=== PATIENT | female | born 1940 | race Caucasian/White ===

== ENCOUNTER 2018-09-30 12:12 | Outpatient (CLI) | payer MEDICARE, OTHER ==
[~2018-09-30 12:12] MED LIST: Bupivacaine 0.5% 30 ML SDV ONE
[2018-09-30 13:24] VITALS: BP 170/88; PULSE 69
--- NOTE | 2018-09-30 13:38 | PN ---
DATE OF SERVICE: 09/30/2018 INDICATION: Ms. Mittal is a 77-year-old female patient, referred to the [facility] to us by Dr. Garner. She is here today for trigger points. Please see the orders for the patient's preprocedure diagnosis as well as ICD-10 code. The risks and benefits of the procedure were explained to the patient. She wished to proceed with trigger points. TECHNIQUE: I did find 21 noticeable lumbar and thoracic trigger points. I did inject each of these with 1 to 2 mL of 0.5% Sensorcaine with Depo-Medrol mixture. She tolerated procedure very nicely. Her vital signs remained stable throughout the procedure and nurse was with the entire procedure. I did inject more than 3 muscle groups. She was discharged from the [facility] per protocol. Bola Muñoz CRNA /[id number]
== END 2018-09-30 13:24 | disposition home or self-care (01) ==
LOC: JP.PAIN 12:12
PROVIDERS: ATTEND Internal Medicine
DX: M60.9 Myositis, unspecified (principal)
CPT/HCPCS: 20553; J3490

== ENCOUNTER 2020-06-01 06:06 | Day surgery (SDC) | payer MEDICARE, OTHER ==
[2020-06-01] MEDS ORDERED: Sodium Chloride 0.9% 10 ML Syringe FLUSH PRN (07:00)
[2020-06-01 07:57] VITALS: BP 142/78; PULSE 60
--- NOTE | 2020-06-01 08:51 | OR ---
DATE OF PROCEDURE: 06/01/2020 SURGEON: Nahomy Neri MD POSTOPERATIVE CARE: Postoperative care will be provided mainly at the [address] [place] [address] [facility] in conjunction with [facility]. PREOPERATIVE DIAGNOSIS: Cataract, right eye. POSTOPERATIVE DIAGNOSIS: Cataract, right eye. PROCEDURE: Phacoemulsification with intraocular lens placement, right eye. ANESTHESIA: Topical and intracameral. ESTIMATED BLOOD LOSS: Minimal. COMPLICATIONS: None. PATHOLOGY SPECIMENS: None. SURGICAL FINDINGS: None. INDICATION FOR PROCEDURE: The patient is a 79-year-old female with history of a visually significant cataract in the right eye, which interfered with activities of daily living. This consisted of a nuclear sclerosis cataract. Following careful discussion of the risks, benefits and alternatives to cataract extraction with intraocular lens placement including blindness and , the patient elected to proceed, and informed, written consent was obtained prior to the procedure. DESCRIPTION OF THE PROCEDURE: The patient was previously identified, and a jannet placed above the right eye. All sources, including the patient, indicated that the right eye was the correct eye. The patient was subsequently taken to the operating room where standard monitors were applied. The patient was then prepped and draped in the usual sterile fashion for ophthalmic surgery. Attention was first directed at the 12 o'clock position where a paracentesis port was fashioned. Shugar solution followed by Viscoat was instilled into the eye. Attention was then directed to the 8:30 position where a triplanar incision was made in a near-clear manner using a keratome. A continuous capsulorrhexis was then made using a combination of the cystotome and Utrata forceps. Hydrodissection was achieved using a balanced salt solution, and the lens rotated nicely. Phacoemulsification was then done using a modified [id number]-[id number] technique without complication. Phaco time was 5.39 CDE. The remaining cortex was removed using the irrigation/aspiration handpiece. Provisc was then instilled into the eye. A Technis lens, model PCB00, at 17.0 diopters was then placed in the capsular bag using an [place] injector. The remaining viscoelastic was removed using the irrigation/aspiration forceps. All wounds were then checked and found to be watertight. The lid speculum and drapes were removed. Maxitrol ointment was placed in the patient's right eye, and the eye was shielded. The patient tolerated the procedure well. The patient was instructed to follow up tomorrow. All needle and sponge counts were correct at the end of the procedure. Nahomy Neri MD /[id number]
== END 2020-06-01 08:04 | disposition home or self-care (01) ==
LOC: JP.SDS 06:06
PROVIDERS: ATTEND Ophthalmology
DX: H26.9 Unspecified cataract (principal); I25.10 Atherosclerotic heart disease of native coronary artery without angina pectoris; I10 Essential (primary) hypertension; Z95.1 Presence of aortocoronary bypass graft

== ENCOUNTER 2020-06-15 06:08 | Day surgery (SDC) | payer MEDICARE, OTHER ==
[2020-06-15] MEDS ORDERED: Sodium Chloride 0.9% 10 ML Syringe FLUSH PRN (06:30)
[2020-06-15 08:33] VITALS: BP 138/83; PULSE 65
--- NOTE | 2020-06-15 11:10 | OR ---
DATE OF PROCEDURE: 06/15/2020 SURGEON: Nahomy Neri MD POSTOPERATIVE CARE: Postoperative care will be provided mainly at the [address] [place] [address] [facility] in conjunction with [facility]. PREOPERATIVE DIAGNOSIS: Cataract, left eye. POSTOPERATIVE DIAGNOSIS: Cataract, left eye. PROCEDURE: Phacoemulsification with intraocular lens placement, left eye. ANESTHESIA: Topical and intracameral. ESTIMATED BLOOD LOSS: Minimal. COMPLICATIONS: None. PATHOLOGY SPECIMENS: None. SURGICAL FINDINGS: None. INDICATION FOR PROCEDURE: The patient is a 79-year-old female with history of a visually significant cataract in the left eye, which interfered with activities of daily living. This consisted of a nuclear sclerosis cataract. Following careful discussion of the risks, benefits and alternatives to cataract extraction with intraocular lens placement including blindness and , the patient elected to proceed, and informed, written consent was obtained prior to the procedure. DESCRIPTION OF THE PROCEDURE: The patient was previously identified, and a jannet placed above the left eye. All sources, including the patient, indicated that the left eye was the correct eye. The patient was subsequently taken to the operating room where standard monitors were applied. The patient was then prepped and draped in the usual sterile fashion for ophthalmic surgery. Attention was first directed at the 12 o'clock position where a paracentesis port was fashioned. Shugar solution followed by Viscoat was instilled into the eye. Attention was then directed to the 8:30 position where a triplanar incision was made in a near-clear manner using a keratome. A continuous capsulorrhexis was then made using a combination of the cystotome and Utrata forceps. Hydrodissection was achieved using a balanced salt solution, and the lens rotated nicely. Phacoemulsification was then done using a modified [id number]-ybs-oibeuxj technique without complication. Phaco time was 5.38 CDE. The remaining cortex was removed using the irrigation/aspiration handpiece. Provisc was then instilled into the eye. A Technis lens, model DCB00, at 17.0 Diopters was then placed in the capsular bag using an [place] injector. The remaining viscoelastic was removed using the irrigation/aspiration forceps. All wounds were then checked and found to be watertight. The lid speculum and drapes were removed. Maxitrol ointment was placed in the patient's left eye, and the eye was shielded. The patient tolerated the procedure well. The patient was instructed to follow up tomorrow. All needle and sponge counts were correct at the end of the procedure. There were no surgical findings. Nahomy Neri MD /[id number]
== END 2020-06-15 07:53 | disposition home or self-care (01) ==
LOC: JP.SDS 06:08
PROVIDERS: ATTEND Ophthalmology
DX: H26.9 Unspecified cataract (principal)
CPT/HCPCS: 66984; V2632

== ENCOUNTER 2022-11-16 20:46 | Emergency (ER) | payer MEDICARE, OTHER ==
[2022-11-16 21:03] VITALS: BP 190/87; PULSE 77
== END 2022-11-16 22:07 | disposition home or self-care (01) ==
LOC: JP.ED 20:46
DX: S93.401A Sprain of unspecified ligament of right ankle, initial encounter (principal); I25.10 Atherosclerotic heart disease of native coronary artery without angina pectoris; E78.00 Pure hypercholesterolemia, unspecified; I10 Essential (primary) hypertension; K21.9 Gastro-esophageal reflux disease without esophagitis; Z88.0 Allergy status to penicillin; Z88.8 Allergy status to other drugs, medicaments and biological substances; Z88.1 Allergy status to other antibiotic agents; Z79.82 Long term (current) use of aspirin; Z79.899 Other long term (current) drug therapy
CPT/HCPCS: 73610-26-RT; 73610-RT; 73630-26-RT; 73630-RT; 99283